=== PATIENT | female | born 1995 | race Caucasian/White ===

== ENCOUNTER 2017-01-24 08:25 | Emergency (ER) | payer OTHER ==
[~2017-01-24] VITALS: Ht 167.6 cm; Wt 55.5 kg
[~2017-01-24 08:25] MED LIST: Ibuprofen PO; PREN1TAB19 PO
[2017-01-24 08:27] VITALS: BP 123/80; PULSE 68; RESP 16; O2SAT 99
--- NOTE | 2017-01-24 09:17 | ED.REPORT ---
HPI-Abd Pain F Under 40 Date of Service Jan 24, 2017 ED Provider: Kailash Rooney MD Pt is a healthy 27 week 21 y/o female presenting to the ED c/o nausea onset 2 days ago. She c/o associated mild, constant, abdominal discomfort. She was seen at [facility] this morning and was cleared by one of the nurses who called her doctor who recommended she be seen in the ED to rule out UTI. Pt denies vomiting, contractions, vaginal discharge/bleeding, hematuria, dysuria, constipation, diarrhea. This is her second . She has not been nauseous throughout her other than the past 2 days. She has been able to eat and drink normally. Nursing Notes Stated Complaint: NAUSEA/27WKS Chief Complaint: Female Abdominal Pain Nursing Notes Reviewed: Yes Allergies: Coded Allergies: No Known Allergies (Unverified , 03/31/14) Scheduled Cephalexin (Keflex) 500 Mg Capsule 500 MG PO QID Vit/Iron Fumarate/FA ( Vitamins Tablet) 1 Each Tablet 1 EACH PO DAILY Scheduled PRN ([Ibuprofen]) 800 MG TABLET 800 MG PO Q6H PRN PRN For Pain Metoclopramide (Reglan) 5 Mg Tablet 5 MG PO QID PRN PRN For Nausea General Time Seen by MD: 09:06 Chief Complaint Nausea Hx Obtained From: Patient Arrived By: Walk-in Sudden in Onset?: No Onset Occurred: 2 days ago Symptom Duration: Since onset Progression since Onset: Constant Location: : Diffuse Quality: Pressure Radiation: : Does not radiate Severity: Current: Mild Severity: Maximum: Mild Similar Sx Previous: No Past Medical History Past Medical History Healthy Past Surgical History None reported Smoking History Never Smoker Ambulatory Status Independent Review of Systems Constitutional: Denies: Chills, Fever GI: Reports: Abdominal pain, Nausea, Denies: Constipation, Diarrhea, Vomiting Female: Denies: Dysuria, Hematuria, Vaginal bleeding - abnl, Vaginal discharge Musculoskeletal: Denies: Back pain Complete sys rev & neg: except as marked. Physical Exam Initial Vital Signs Vital Signs (First) Date Time Temp Pulse Resp B/P Pulse Ox O2 Delivery O2 Flow Rate FiO2 01/24/17 08:27 36.8 68 16 123/80 99 Room Air Initial VS: Reviewed, Vital signs normal Head / Eyes: Atraumatic, Normocephalic ENT: Mucous membranes moist, Conjunctiva normal, No scleral icterus Neck: Supple, Full range of motion Extremities: Vascular intact, Neuro intact, No swelling Skin: Warm, Dry, No cyanosis Neurologic: Alert, Oriented, Nonfocal Psychiatric: Mood/affect normal, Behavior normal, Normal thought content General/Constitutional: Awake, Alert, No acute distress, Well appearing, Cooperative, Not toxic appearing Respiratory / Chest: Breath sounds NL, Breath sounds = bilat, No respiratory distress, No rales, No rhonchi, No wheezing Cardiovascular: Heart rate NL, Regular rhythm, Heart sounds NL, No murmurs Abdomen: Atraumatic, Soft, Non-tender, No guarding, No rebound Uterus is gravid Back: Full range of motion, Painless range of motion Interpretation & Diagnostics Lab Results Interpretation Result Diagram: 01/24/17 0905 01/24/17 0905 Test 01/24/17 08:52 01/24/17 09:05 Urine Color Straw (YELLOW) Urine Appearance Clear (CLEAR,HAZY) Urine pH 8.0 (5.0-8.0) Urine Specific Ethel 1.010 (1.003-1.035) Urine Protein Negativemg/dL (NEG,TRACE) Urine Glucose (UA) Negativemg/dL (NEGATIVE) Urine Ketones Negativemg/dL (NEGATIVE) Urine Occult Blood Negative (NEGATIVE) Urine Nitrite Negative (NEGATIVE) Urine Bilirubin Negative (NEGATIVE) Urine Urobilinogen Normalmg/dL (NORMAL) Urine Leukocyte Esterase Small (NEGATIVE) Urine RBC 0-2/hpf (0-2) Urine WBC 0-5/hpf (0-5) Urine Epithelial Cells Occasional/hpf (NONE-MOD) Urine Crystals None seen (NONE SEEN) Urine Bacteria Many/hpf (NONE-FEW) Urine Hyaline Casts None/lpf (NONE) Urine Granular Casts None seen (NONE SEEN) Urine Waxy Casts None seen (NONE SEEN) Urine Red Blood Cell Casts None seen (NONE SEEN) Urine White Blood Cell Casts None seen (NONE SEEN) Urine Mucus None seen (None Seen) Urine Trichomonas None seen (NONE SEEN) Urine Yeast None (NONE SEEN) Urinalysis Comment None Urine Culture Reflexed Indicated Hold Urine Received (Received) White Blood Count 7.9th/mm3 (3.8-10.1) Red Blood Count 3.94mil/mm3 (3.90-5.20) Hemoglobin 11.5g/dL (12.0-15.6) Hematocrit 34.0% (35.0-46.0) Mean Corpuscular Volume 86.3fL (81-100) Mean Corpuscular Hemoglobin 29.2pg (27.0-35.0) Mean Corpuscular Hemoglobin Concent 33.8% (32.0-37.0) Red Cell Distribution Width 12.7% (12.3-15.4) Platelet Count 159bil/L (150-400) Neutrophils (%) (Auto) 74.4% (40-74) Lymphocytes (%) (Auto) 17.6% (14-46) Monocytes (%) (Auto) 6.3% (4-12) Eosinophils (%) (Auto) 1.0% (0-5) Basophils (%) (Auto) 0.4% (0-3) Hold Purple Top Tube Received (Received) Hold Blue Top Tube Received (Received) Sodium Level 137mEq/L (134-144) Potassium Level 3.8mEq/L (3.5-5.2) Chloride Level 100mEq/L (97-108) Carbon Dioxide Level 24mmol/L (18-29) Blood Urea Nitrogen 6mg/dL (6-20) Creatinine 0.43mg/dL (0.57-1.00) Estimat Glomerular Filtration Rate 263mL/min (>59) Glucose Level 77mg/dL (60-99) Calcium Level 9.0mg/dL (8.5-10.1) Total Bilirubin 0.4mg/dL (0.0-1.2) Aspartate Amino Transf (AST/SGOT) 17U/L (0-50) Alanine Aminotransferase (ALT/SGPT) 16U/L (0-32) Alkaline Phosphatase 77U/L (25-150) Total Protein 7.2g/dL (6.4-8.4) Albumin 3.7g/dL (3.4-5.0) Lipase 35U/L (13-60) Hold [place] Top Tube Received (Received) Hold [place] Top Tube Received (Received) Re-Eval/Medical Decision Med Decision/Clinical Course Med Decision/Clinical Course: 21-year-old female 27 weeks sent by [facility] to rule out UTI. She presents with lower abdominal pain. She was cleared by [facility]. She denies any contractions, vaginal bleeding, discharge. She reports some lower abdominal discomfort. Her urine does suggest possible UTI. She has no signs of pyelonephritis or sepsis. She will be treated with oral antibiotics with plans to follow-up with her primary doctor or [facility] on Thursday. She was given strict return precautions if any sign symptoms pyelonephritis, any other neurologic abdominal pain, vaginal bleeding, contractions, discharge, or worsening symptoms. She is agreeable with this plan. Source of Hx: Old records Re-Evaluation/Progress : Time of Eval: 10:25 Re-Evaluation/Progress Note: Pt rechecked. Informed pt of plan for discharge. Pt understands and agrees with plan for discharge. F/U instructions and RTER warnings given. All questions addressed. Counseled Regarding: Diagnosis, Lab results, Need for follow-up, When/why to return to ED Discharge & Departure Primary Impression: UTI (urinary tract infection) Urinary tract infection type: site unspecified Hematuria presence: without hematuria Qualified Code: N39.0 - Urinary tract infection, site not specified Additional Impressions: Nausea Currently Weeks of gestation: 27 weeks Qualified Code: Z3A.27 - 27 weeks gestation of Abdominal discomfort Disposition: Home Discharge Condition All VS Reviewed: Yes Condition: Improved Patient Instructions: Nausea and Vomiting in (ED) Additional Instructions: Your urine does show some signs of infection therefore I would like to start you on antibiotics. Please take Keflex as prescribed. You can take Reglan every 6 hours as needed for nausea. Return to the emergency department if you experience uncontrolled vomiting, fever, worsening abdominal pain, severe back pain, or for other concerning symptoms. Follow-up with your primary care or obstetrics doctor in 2-3 days for a recheck. Referrals: Kell Zimmerman (PCP) Scribe Attestation Portions of this note were transcribed by Jeremie Gomez. I, Dr. Rooney personally performed the history, physical exam and medical decision-making; I reviewed and confirmed the accuracy of the information in the transcribed note. copies to: Kell Zimmerman Ben M MD Jan 24, 2017 09:17 JEREMIE GOMEZ Jan 24, 2017 09:25
[2017-01-24] MEDS ORDERED: MetoCLOpramide 5 mg/mL 2 mL Inj IVPUSH ONE (09:30)
[2017-01-24 09:58] LABS: APPEARANCE,URINE CLEAR (CLEAR,HAZY); COLOR,URINE STRAW (YELLOW); OCCULT BLOOD,URINE NEGATIVE (NEGATIVE); UROBILINOGEN,URINE NORMAL (NORMAL)
[2017-01-24 10:06] LABS: BASOPHILS % (AUTO) 0.4 % (0-3); MONOCYTES % (AUTO) 6.3 % (4-12); Mean Corpuscular Hemoglobin 29.2 pg (27.0-35.0); Mean Corpuscular Volume 86.3 fL (81-100); NEUTROPHILS % (AUTO) 74.4 % (40-74); Platelet Count 159 bil/L (150-400)
[2017-01-24] MEDS ORDERED: CEPH-512 PO (10:24)
[2017-01-24] MEDS ORDERED: METO5TAB78 PO (10:24)
[2017-01-24 10:53] VITALS: BP 120/78; PULSE 91; RESP 18; O2SAT 100
== END 2017-01-24 10:54 | disposition home or self-care (01) ==
LOC: SED 08:25
DX: O23.42 Unspecified infection of urinary tract in pregnancy, second trimester (principal); O99.89 Other specified diseases and conditions complicating pregnancy, childbirth and the puerperium; R11.2 Nausea with vomiting, unspecified; R10.30 Lower abdominal pain, unspecified; B96.20 Unspecified Escherichia coli [E. coli] as the cause of diseases classified elsewhere; Z3A.27 27 weeks gestation of pregnancy
CPT/HCPCS: 36415; 80053; 81000; 83690; 85025; 87077; 87086; 87088; 87186; 96361; 96374; 99285; J2765